=== PATIENT | female | born 2000 | race African-American/Black ===

== ENCOUNTER 2019-06-27 17:14 | Emergency (ER) | payer OTHER ==
[2019-06-27 17:18] VITALS: BP 123/69; PULSE 93; TEMP 98.1; BMI 20.8
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
== END 2019-06-27 18:08 | disposition home or self-care (01) ==
LOC: JERFT 17:14
DX: S16.1XXA Strain of muscle, fascia and tendon at neck level, initial encounter (principal)
CPT/HCPCS: 99283-25

== ENCOUNTER → 2021-08-12 | Day surgery (SDC) | payer OTHER | END | disposition home or self-care (01) | LOC: JMAMMO-SUR 10:20 | PROVIDERS: ATTEND Obstetrics & Gynecology | PROC: 0H9U3ZX Drainage of Left Breast, Percutaneous Approach, Diagnostic (ICD-10-PCS; principal; 2021-08-12) | DX: D24.2 Benign neoplasm of left breast (principal) | CPT/HCPCS: 19083; 87899; 88305-TC; A4648 ==

== ENCOUNTER 2021-10-07 04:10 | Day surgery (SDC) | payer OTHER ==
[2021-10-05 13:45] VITALS: BMI 22.6
[~2021-10-07 04:10] MED LIST: LIDOCAINE HCL 1%, 10 MG/ML (20ML VIAL) NR ONE
[2021-10-07] MEDS ORDERED: MIDAZOLAM HCL 2 MG/2 ML SINGLE DOSE VIAL ONE ×2 (14:41)
[2021-10-07] MEDS ORDERED: PROPOFOL 20 ML ONE ×2 (14:41→15:23)
[2021-10-07] MEDS ORDERED: LIDOCAINE HCL 1% EPINEPHRINE 1:200,000 30 ML VIAL (PF) ONE ×2 (15:04→15:27)
[2021-10-07] MEDS ORDERED: BUPIVACAINE HCL/PF 0.5% (5MG/ML) 10 ML VIAL IJ ONE (15:37)
[2021-10-07 17:38] VITALS: BP 122/71; PULSE 89; TEMP 97.4
== END 2021-10-07 17:20 | disposition home or self-care (01) ==
LOC: JASU-SURG 04:10
PROVIDERS: ATTEND Surgery Surgical Oncology
PROC: 0HBU0ZX Excision of Left Breast, Open Approach, Diagnostic (ICD-10-PCS; principal; 2021-10-07 14:00)
DX: D24.2 Benign neoplasm of left breast (principal)
CPT/HCPCS: 81025; 88307-TC